=== PATIENT | female | born 1965 | race Caucasian/White ===

== ENCOUNTER 2017-11-15 07:49 | Day surgery (SDC) | payer OTHER ==
[2017-11-15] MEDS ORDERED: ROPIVACAINE 0.5 % 30 ML VIAL (08:38)
[2017-11-15] MEDS ORDERED: PROPOFOL 20 ML (08:38)
[2017-11-15] MEDS ORDERED: ROCURONIUM 50 MG INJ (09:20)
[2017-11-15] MEDS ORDERED: ONDANSETRON 4 MG INJ (09:20)
[2017-11-15] MEDS ORDERED: CEFAZOLIN 1 GM INJ (09:20)
[2017-11-15] MEDS ORDERED: DEXAMETHASONE 4 MG/ML 1 ML INJ (09:20)
[2017-11-15] MEDS ORDERED: GLYCOPYRROLATE 1 MG INJ (10:27)
[2017-11-15] MEDS ORDERED: NEOSTIGMINE 3 MG/3 ML SYRINGE (10:27)
[2017-11-15] MEDS ORDERED: POLYMYXIN/BACITRACIN 1L IRRIG (10:55)
[2017-11-15] MEDS: ONDANSETRON 4 MG INJ IV (10:57)
[2017-11-15] MEDS ORDERED: METOCLOPRAMIDE 10 MG INJ IV (11:00)
[2017-11-15] MEDS ORDERED: MEPERIDINE 25 MG INJ IV (11:00)
[2017-11-15] MEDS ORDERED: KETOROLAC 30 MG INJ IV (11:00)
[2017-11-15] MEDS ORDERED: ALBUTEROL 0.083% (NEB) 2.5 MG/3 ML AMP HHN (11:00)
[2017-11-15] MEDS ORDERED: OXYCODONE/ACETAMINOPHEN (5/325) TAB PO ×2 (11:00)
[2017-11-15] MEDS ORDERED: LABETALOL HCL 20MG INJ IV (11:00)
[2017-11-15] MEDS ORDERED: FENTAnyl 50 MCG/ML VIAL IV ×3 (11:00)
[2017-11-15] MEDS ORDERED: hydrALAzine 20 MG INJ IV (11:00)
[2017-11-15] MEDS ORDERED: EPHEDrine SULFATE 50 MG/5 ML SYG IV (11:00)
[2017-11-15] MEDS ORDERED: HYDROmorphONE (0.2 MG/ML) 10ML SYG IV ×3 (11:00)
[2017-11-15] MEDS: DIPHENHYDRAMINE 50 MG INJ IV (12:07)
== END 2017-11-15 12:30 | disposition home or self-care (01) ==
LOC: SDS 07:49
DX: S52.571A Other intraarticular fracture of lower end of right radius, initial encounter for closed fracture (principal); X58.XXXA Exposure to other specified factors, initial encounter; G56.01 Carpal tunnel syndrome, right upper limb
CPT/HCPCS: 25608; 73090-RT

== ENCOUNTER 2018-09-04 16:06 | Emergency (ER) | payer SELFPAY, OTHER | END 2018-09-04 23:15 | disposition home or self-care (01) | LOC: E/R 16:06 | DX: F10.10 Alcohol abuse, uncomplicated (principal); R40.2142 Coma scale, eyes open, spontaneous, at arrival to emergency department; R40.2362 Coma scale, best motor response, obeys commands, at arrival to emergency department; R40.2252 Coma scale, best verbal response, oriented, at arrival to emergency department; R51 Headache | CPT/HCPCS: 70450; 72125; 99284-25 ==

== ENCOUNTER 2018-10-04 10:33 | Emergency (ER) | payer SELFPAY | END 2018-10-04 13:28 | disposition home or self-care (01) | LOC: FTE 10:33 | DX: S69.92XA Unspecified injury of left wrist, hand and finger(s), initial encounter (principal); V28.9XXA Unspecified motorcycle rider injured in noncollision transport accident in traffic accident, initial encounter | CPT/HCPCS: 73110; 73110-LT; 73130-LT; 99283-25 ==